=== PATIENT | female | born 1965 | race Two or more races ===

== ENCOUNTER → 2025-01-20 | Outpatient (CLI) | payer OTHER ==
[~2025-01-20] MED LIST: DICLOFENAC POTA50 MG PO; METHOCARBAMOL500 MG PO
== END | disposition home or self-care (01) ==
LOC: SONOGRAMA 13:18
PROVIDERS: ATTEND Physical Medicine & Rehabilitation
DX: M25.511 Pain in right shoulder (principal); M12.811 Other specific arthropathies, not elsewhere classified, right shoulder